=== PATIENT | male | born 1940 | race Caucasian/White ===

== ENCOUNTER 2017-10-23 16:20 | Observation (INO) | payer MEDICARE, BC ==
[2017-10-23 17:15] LABS: ABS Basophils 0.1 10^3/ul (0-0.2); ABS Eosinophils 0.1 10^3/ul (0-0.6); ABS Lymphocytes 1.3 10^3/ul (1.0-4.8); ABS Monocytes 0.7 10^3/ul (0-0.8); ABS Neutrophils 6.5 10^3/ul (1.5-7.7); ABS Nucleated RBC 0.1 10^3/ul; Hematocrit 46 % (42-52); Hemoglobin 15.7 g/dl (14.0-18.0); Lymphocyte % 15.2 % (25-47); Mean Corpuscular HGB Conc 34 g/dl (31-36); Mean Corpuscular Hemoglobin 29 pg (27-31); Mean Corpuscular Volume 86 fL (80-94); Mean Platelet Volume 8.4 um3 (7.4-10.4); Nucleated Red Blood Cells % 0.5; Platelet Count 156 10^3/ul (150-450); Red Blood Count 5.34 10^6/ul (4.00-5.40); Red Cell Distribution Width 15 % (10.5-15); White Blood Count 8.7 10^3/ul (3.5-10.8)
--- NOTE | 2017-10-23 17:50 | RAD ---
INDICATION: Chest pain COMPARISON: December 25, 2014 TECHNIQUE: An AP portable view obtained at 2022 hours is submitted. FINDINGS: Bones/Soft Tissues: There are no acute bony findings. Cardiomediastinal: The cardiomediastinal silhouette is normal. Lungs: There are no infiltrates. Pleura: There are no pleural effusions. Other: None IMPRESSION: NO ACTIVE DISEASE
[2017-10-23] MEDS ORDERED: Aspirin 81 mg CHEW TAB* 81 MG TAB.CHEW PO ONE (17:51)
[2017-10-23] MEDS ORDERED: Nitroglycerin TAB 0.4 MG* 0.4 MG TAB SL PRN (17:51)
[2017-10-23] MEDS ORDERED: Nitroglycerin TAB 0.4 MG* 0.4 MG TAB ONE (17:56)
--- NOTE | 2017-10-23 18:01 | ED ---
HPI Chest Pain - HPI Summary HPI Summary: This is scribe Herman Avila documenting for attending Eliseo Ryder MD. This patient is a 77 year old M presenting to [facility] with a chief complaint of a burning L sided chest pain since this morning. The patient rates the pain 5/10 in severity and reports that it radiates to his L shoulder. Patient reports SOB , high blood pressure, and sporadic long episodes of coughing (lasting for 10 minutes at a time). Patient denies nausea, vomiting, fever, and chills. He had an ablation for his A Fib at [place] in [place] about a week ago. Patient has not taken any nitroglycerin. He has a PMHx of asthma. I, Dr. Ryder, personally performed the services described in this documentation as scribed in my presence, and it is both accurate and complete. - History of Current Complaint Chief Complaint: EDChestPainROMI Time Seen by Provider: 10/23/17 17:40 Hx Obtained From: Patient Onset/Duration: Started Hours Ago - This morning, Still Present Initial Severity: Moderate Current Severity: Moderate Pain Intensity: 5 Pain Scale Used: 0-10 Numeric Chest Pain Location: Left Anterior Chest Pain Radiates: Yes Chest Pain Radiates To:: Shoulder - L shoulder Character: Burning Aggravating Factor(s): Nothing Alleviating Factor(s): Nothing Associated Signs and Symptoms: Positive: Chest Pain - burning L sided CP, Shortness of Breath, Cough - Sporadic coughing lasting for about 10 minutes at a time, Other: - High blood pressure. Negative: Fever, Chills, Nausea, Vomiting - Allergy/Home Medications Allergies/Adverse Reactions: Allergies Allergy/AdvReac Type Severity Reaction Status Date / Time erythromycin base Allergy GI Upset Verified 10/23/17 17:52 Home Medications: Home Medications Albuterol inh POWDER (NF) [Proair Respiclick] 2 puff INH Q4HR PRN 10/23/17 [ History Confirmed 10/23/17] Amiodarone TAB* [Cordarone TAB*] 200 mg PO DAILY 10/23/17 [History Confirmed ] Apixaban* [Eliquis*] 5 mg PO BID 10/23/17 [History Confirmed 10/23/17] Fluticasone/Vilanterol MDI(NF) [Breo Ellipta MDI 200/25(NF)] 1 puff INH DAILY [History Confirmed 10/23/17] Olmesartan Medoxomil [Benicar] 40 mg PO DAILY 10/23/17 [History Confirmed ] Omeprazole CAP* [Prilosec CAP* 20 MG] 40 mg PO DAILY 10/23/17 [History Confirmed 10/23/17] Tamsulosin CAP* [Flomax CAP*] 0.4 mg PO DAILY 10/23/17 [History Confirmed ] Verapamil SR CAP* [Calan Sr CAP*] 180 mg PO DAILY 10/23/17 [History Confirmed ] hydrALAZINE TAB* [Apresoline TAB*] 50 mg PO QAM 10/23/17 [History Confirmed ] hydrALAZINE TAB* [Apresoline TAB*] 100 mg PO BEDTIME 10/23/17 [History Confirmed 10/23/17] PMH/Surg Hx/FS Hx/Imm Hx Endocrine/Hematology History: Denies: Hx Diabetes, Hx Sickle Cell Disease Cardiovascular History: Reports: Hx Hypertension Denies: Hx Congestive Heart Failure Respiratory History: Reports: Hx Asthma Denies: Other Respiratory Problems/Disorders GI History: Reports: Other GI Disorders - DIVERTICULITIS History: Denies: Hx Renal Disease, Other Problems/Disorders Musculoskeletal History: Denies: Other Musculoskeletal History Sensory History: Reports: Hx Contacts or Glasses - READING Denies: Hx Hearing Aid Opthamlomology History: Reports: Hx Contacts or Glasses - READING Neurological History: Denies: Other Neuro Impairments/Disorders - Surgical History Surgery Procedure, Year, and Place: APPENDECTOMY AND CHOLECYSTECTOMY, prostate "scraped" Hx Anesthesia Reactions: No - Immunization History Immunizations Up to Date: Yes Infectious Disease History: No Infectious Disease History: Denies: Traveled Outside the [place] in Last 30 Days - Family History Known Family History: Positive: Hypertension - Social History Occupation: Retired Lives: With Family Alcohol Use: None Substance Use Type: Reports: None Smoking Status (MU): Never Smoked Tobacco Review of Systems Negative: Fever, Chills Positive: Chest Pain - burning L-sided CP since this morning, with pain radiating to L shoulder, Other - High BP Positive: Shortness Of Breath, Cough - Sporadic long episodes of coughing ( lasting up to 10 minutes) Negative: Vomiting, Nausea All Other Systems Reviewed And Are Negative: Yes Physical Exam - Summary Physical Exam Summary: VITAL SIGNS: Reviewed. GENERAL: Patient is a well-developed and nourished MALE who is lying comfortable in the stretcher. Patient is not in any acute respiratory distress. HEAD AND FACE: No signs of trauma. No ecchymosis, hematomas or skull depressions. No sinus tenderness. EYES: PERRLA, EOMI x 2, No injected conjunctiva, no nystagmus. EARS: Hearing grossly intact. Ear canals and tympanic membranes are within normal limits. MOUTH: Oropharynx within normal limits. NECK: Supple, trachea is midline, no adenopathy, no JVD, no carotid bruit, no c- spine tenderness, neck with full ROM. CHEST: Symmetric, no tenderness at palpation LUNGS: Clear to auscultation bilaterally. No wheezing or crackles. CVS: Regular rate and rhythm, S1 and S2 present, no murmurs or gallops appreciated. ABDOMEN: Soft, non-tender. No signs of distention. No rebound no guarding, and no masses palpated. Bowel sounds are normal. EXTREMITIES: FROM in all major joints, no edema, no cyanosis or clubbing. NEURO: Alert and oriented x 3. No acute neurological deficits. Speech is normal and follows commands. SKIN: Dry and warm Triage Information Reviewed: Yes Vital Signs On Initial Exam: Initial Vitals Temp Pulse Resp BP Pulse Ox 98.3 F 80 20 201/86 96 10/23/17 16:22 10/23/17 16:22 10/23/17 16:22 10/23/17 16:22 10/23/17 16:22 Vital Signs Reviewed: Yes Diagnostics - Vital Signs Vital Signs Temp Pulse Resp BP Pulse Ox 10/23/17 16:22 98.3 F 80 20 201/86 96 - Laboratory Lab Results: Lab Results 10/23/17 10/23/17 10/23/17 Range/Units 17:05 17:05 17:05 WBC 8.7 (3.5-10.8) 10^3/ul RBC 5.34 (4.00-5.40) 10^6/ul Hgb 15.7 (14.0-18.0) g/dl Hct 46 (42-52) % MCV 86 (80-94) fL MCH 29 (27-31) pg MCHC 34 (31-36) g/dl RDW 15 (10.5-15) % Plt Count 156 (150-450) 10^3/ul MPV 8.4 (7.4-10.4) um3 Neut % (Auto) 74.4 (38-83) % Lymph % (Auto) 15.2 L (25-47) % [place] % (Auto) 8.2 H (0-7) % Eos % (Auto) 1.0 (0-6) % Baso % (Auto) 1.2 (0-2) % Absolute Neuts (auto) 6.5 (1.5-7.7) 10^3/ul Absolute Lymphs (auto) 1.3 (1.0-4.8) 10^3/ul Absolute Monos (auto) 0.7 (0-0.8) 10^3/ul Absolute Eos (auto) 0.1 (0-0.6) 10^3/ul Absolute Basos (auto) 0.1 (0-0.2) 10^3/ul Absolute Nucleated RBC 0.1 10^3/ul Nucleated RBC % 0.5 Sodium 138 (135-145) mmol/L Potassium 4.0 (3.5-5.0) mmol/L Chloride 104 (101-111) mmol/L Carbon Dioxide Pending Anion Gap Pending BUN Pending Creatinine Pending Est GFR ( Amer) Pending Est GFR (Non-Af Amer) Pending BUN/Creatinine Ratio Pending Glucose Pending Calcium Pending Magnesium Pending Total Bilirubin Pending AST Pending ALT Pending Alkaline Phosphatase Pending Total Creatine Kinase Pending CK-MB (CK-2) 1.6 (0.6-6.3) ng/mL Troponin I 0.04 H* (<0.04) ng/mL B-Natriuretic Peptide 24 ( - 100) pg/mL Total Protein Pending Albumin Pending Globulin Pending Albumin/Globulin Ratio Pending TSH 3.07 (0.34-5.60) mcIU/mL Result Diagrams: 10/23/17 17:05 10/23/17 17:05 Lab Statement: Any lab studies that have been ordered have been reviewed, and results considered in the medical decision making process. - Radiology Chest X-Ray Radiology Interpretation Completed By: Radiologist - 17:46. No active disease. ED Physician has reviewed this report. - EKG No standard instances Cardiac Rate: NL - 72 BPM EKG Rhythm: Sinus Rhythm EKG Interpretation: Read 16:30. No ST elevation. Has depressions V4-V6. Chest Pain Course/Dx - Course Assessment/Plan: This patient is a 77-year-old male with a past medical history significant for atrial fibrillation on xarelto, hypertension, and asthma. He presents to the emergency department with a chief complaint of having chest pain. He reports that the chest pain is a burning and pressure-like pain in relation to the left shoulder. He reports that a week ago he had an ablation for atrial fibrillation. EKG shows a sinus rhythm at 72 bpm. Chest x-ray impression: no acute pathology. Blood work without any significant abnormality except for troponin of 0.04. The patient was given aspirin, Lopressor and nitroglycerin. At this point because of the patients symptoms I discussed the case with Dr. Fishman from the hospitalist services who accepted the patient for admission. The patient is hemodynamically stable alert and oriented 3. - Chest Pain Differential Diagnosis/HQI/PQRI: Acute [place], ACS, Angina, CHF, Chest Wall, GI Disease, Lower Respiratory Infection - Diagnoses Provider Diagnoses: Chest pain, Elevated troponin - Provider Notifications Discussed Care Of Patient With: Kelsey Fishman - Hospitalist Time Discussed With Above Provider: 17:54 Instructed by Provider To: Admit As Inpatient Discharge - Sign-Out/Discharge Documenting (check all that apply): Patient Departure - Admit to Kelsey Fishman MD - Discharge Plan Condition: Stable Disposition: ADMITTED TO [facility]
[2017-10-23] MEDS ORDERED: Al Hydrox/Mg Hydrox/Simet LIQ* 30 ML UDC PO PRN (18:36)
[2017-10-23] MEDS ORDERED: Morphine INJ* 2 MG/ML 1 ML SYRINGE (TWO MG - NEW SYRINGE VERSION) IV PRN (18:36)
[2017-10-23] MEDS ORDERED: Acetaminophen TAB* 325 MG PO PRN (18:36)
[2017-10-23] MEDS ORDERED: Albuterol HFA INHALER* 8 gm MDI INH PRN (18:40)
[2017-10-23] MEDS ORDERED: hydrALAZINE IV* 20 MG/ML VIAL IV SLOW PU PRN (18:42)
[2017-10-23 18:51] LABS: EGFR Non-African American 62.6 (>60)
[2017-10-23] MEDS ORDERED: hydrALAZINE TAB* 100 MG ** ONE HUNDRED PO SCH (21:00)
[2017-10-23] MEDS: Apixaban* 5 MG TAB PO SCH (21:02)
--- NOTE | 2017-10-23 21:26 | HP ---
CC: Dr. Wilkinson; Dr. Stone; Dr. Cindy Chatterjee, [facility]* HISTORY AND PHYSICAL: DATE OF ADMISSION: 10/23/17 PRIMARY CARE PROVIDER: Dr. Wilkinson. FOREIGN LAW CONSULTANT: Dr. Stone. CHIEF COMPLAINT: Chest pain. HISTORY OF PRESENT ILLNESS: Justo Peterson is a 77-year-old male with history of atrial flutter for which he had undergone an ablation procedure by Dr. Fatimah Garcia at [facility] on 10/16/17. The patient stated that immediately after ablation, he felt left shoulder pain radiating to the left neck. He stated that the pain is sometimes like burning, but is also tender to palpation in the left scapular area when he lies down. Today, in addition to that, he started developing substernal chest burning sensation. He checked his blood pressure and it was elevated. He checked it again and it was higher. He eventually came to the hospital with blood pressure 201/86. He continued to be in sinus rhythm. His troponin was 0.04, which is not surprising after the ablation. He is going to be placed on overnight observation with a diagnosis of chest pain. PAST SURGICAL HISTORY: 1. History of atrial flutter, status post ablation as mentioned above on at [facility] in [place]. 2. History of uncontrolled hypertension in the past. 3. History of asthma. 4. Gastroesophageal reflux disease. 5. History of BPH, status post TURP in the past. 6. History of left hip replacement in August of 2016. CURRENT MEDICATIONS: Include: 1. Hydralazine 50 mg in the morning, 100 at night. 2. Omeprazole 40 mg daily. 3. Flomax 0.4 mg daily. 4. Verapamil SR 180 mg daily. 5. Olmesartan 40 mg daily. 6. Eliquis 5 mg b.i.d. 7. Amiodarone 200 mg daily. 8. Breo Ellipta 1 inhalation daily. ALLERGIES: ERYTHROMYCIN. FAMILY HISTORY: Positive for history of atrial fibrillation in the family. SOCIAL HISTORY: The patient has been for 55 years. 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 He denies any tobacco, alcohol, or drug use. His surrogate is his . REVIEW OF SYSTEMS: Please see history of present illness. The patient stated that initially when he was diagnosed with atrial fibrillation early on this year , he was noted to have generalized weakness and fatigue as well as shortness of breath with exertion. He stated that when he came over to the ablation procedure, he was in sinus rhythm. He stated that he was told that the procedure was successful. He denies any current chest pain. His weight has been stable. He denies any abdominal pain or fevers. All the remaining 14 systems were reviewed with the patient and were otherwise negative. Of note, the patient had nuclear cardiac stress test obtained at [facility] under the direction of Dr. Stone that was reported to be normal cardiac chemical nuclear stress test with no evidence of ischemia and that was noted to be on 10/09/17. PHYSICAL EXAMINATION GENERAL: The patient is a very pleasant 77-year-old male, who is in no acute distress. Alert, awake, and oriented x3. VITAL SIGNS: Blood pressure of /87, heart rate of 62 and regular, respiratory rate 17, oxygen saturation 93% on room air, temperature of 98.3. HEENT: Head: Atraumatic, normocephalic. Eyes: Pupils are equal, reactive to light and accommodation. Oropharynx is clear. Mucosa moist. NECK: Supple. No JVD. No bruits bilaterally. RESPIRATORY: Clear to auscultation bilaterally. CARDIOVASCULAR: Regular rate and rhythm. No murmur. ABDOMEN: Soft, nontender. Bowel sounds are present in all 4 quadrants. BACK: On evaluation of the back, on palpation of the back, the patient has point tenderness over the left scapular region. EXTREMITIES: There is no edema. Pulses are +2 bilaterally. No clubbing or cyanosis. NEUROLOGIC: Speech is clear. Cranial nerves II through XII are grossly intact. Motor strength is 5/5 bilaterally. PSYCHIATRIC: Oriented x2 with no evidence of anxiety or depression. SKIN: On evaluation of the skin, no ecchymotic areas or rashes noted. DIAGNOSTIC STUDIES/LAB DATA: Part of it is still pending, but what we have is sodium of 138, potassium 4.0, chloride 104. Troponin of 0.04. TSH of 3.07. CBC with white blood cell count of 8.7, hemoglobin of 15.7, hematocrit of 46, and platelets of . Portable chest x-ray, impression: "No active disease." The patient's EKG showed normal sinus rhythm with a heart rate of 72 beats per minute, prolonged QT interval with QTc of 477 milliseconds, no ST changes. ASSESSMENT AND PLAN: 1. In regards to the patient experiencing chest pain after ablation, I curb- sided the cover cutter machine on-call. At this point, we are going to obtain CT angiogram to rule out pulmonary embolism. The patient is going to be placed on overnight observation with followup troponins. His EKG is going to be repeated in the morning and we will obtain a transthoracic echocardiogram. So far, a troponin of 0.04, I do not believe it is that abnormal in a patient a week after ablation. 2. In regards to the patient's hypertension, we will continue with his outpatient medications with addition of hydralazine IV p.r.n. on as needed basis. 3. For his DVT prophylaxis, the patient is at moderate risk and Eliquis is going to be continued. 4. For his history of atrial flutter, the patient is currently in normal sinus rhythm. His antiarrhythmics are going to be continued as previously ordered by his database management specialist and those have been unchanged from prior to the ablation. 5. The patient's code status is full. His surrogate is his . TIME SPENT: Approximately 75 minutes was spent on admission of this patient, more than half of that time was spent [id number] with the patient during the interview and physical exam. [id number]/CPS #: [id number] KHUSHI
[2017-10-23] MEDS ORDERED: Iohexol 350* (CONTRAST) 500 ML MDV IV SCH (21:50)
--- NOTE | 2017-10-23 22:52 | RAD ---
EXAM: CT Angiography Chest With Intravenous Contrast EXAM DATE/TIME: 10/23/17 (10:00pm) CLINICAL HISTORY: 77 year old male. Atrial fibrillation. Possible pulmonary embolism. TECHNIQUE: Axial computed tomographic angiography images of the chest with intravenous contrast using pulmonary embolism protocol. All CT scans at this facility use at least one of these dose optimization techniques: automated exposure control; mA and/or kV adjustment per patient size (includes targeted exams where dose is matched to clinical indication); or iterative reconstruction. 3D and MIP reconstructed images were created and reviewed. Coronal and sagittal reformatted images were created and reviewed. CONTRAST: 83 mL of Omnipaque 350 administered intravenously COMPARISON: Frontal CXR of 12/25/14 FINDINGS: Pulmonary arteries: Unremarkable. No pulmonary embolism. Aorta: No acute findings. No thoracic aortic aneurysm. Lungs: No mass nor consolidation. Minimal streaky atelectatic changes at each lung base. Pleural space: Unremarkable. No significant pleural effusions. No pneumothorax. Heart: Unremarkable. No cardiomegaly. No significant pericardial effusion. No evidence of RV dysfunction. Bones/joints: No acute fracture nor dislocation. Soft tissues: Unremarkable. Lymph nodes: Unremarkable. No enlarged lymph nodes. Upper abdomen: Diffuse fatty infiltration of the liver. Previous cholecystectomy. Probable small cyst at the left upper renal pole (partially imaged). IMPRESSION: No acute chest pathology. No filling defects suspicious for pulmonary emboli are seen. There is no CT evidence of aortic dissection nor leakage. No aortic aneurysm is appreciated. Previous cholecystectomy. Final reading addendum: There are calcified granulomas of the lung and spleen as well as calcified hilar lymph nodes consistent with exposure to granulomatous disease. R2
[2017-10-24 06:45] LABS: ABS Basophils 0.1 10^3/ul (0-0.2); ABS Eosinophils 0.2 10^3/ul (0-0.6); ABS Lymphocytes 1.7 10^3/ul (1.0-4.8); ABS Monocytes 0.7 10^3/ul (0-0.8); ABS Neutrophils 5.6 10^3/ul (1.5-7.7); ABS Nucleated RBC 0 10^3/ul; Hematocrit 44 % (42-52); Hemoglobin 15.4 g/dl (14.0-18.0); Lymphocyte % 20.4 % (25-47); Mean Corpuscular HGB Conc 35 g/dl (31-36); Mean Corpuscular Hemoglobin 30 pg (27-31); Mean Corpuscular Volume 85 fL (80-94); Mean Platelet Volume 8.4 um3 (7.4-10.4); Nucleated Red Blood Cells % 0.2; Platelet Count 145 10^3/ul (150-450); Red Cell Distribution Width 15 % (10.5-15); White Blood Count 8.3 10^3/ul (3.5-10.8)
[2017-10-24] MEDS ORDERED: Omeprazole CAP* 20 MG PO SCH (07:30)
[2017-10-24] MEDS ORDERED: hydrALAZINE TAB* 25 MG PO SCH (09:00)
[2017-10-24] MEDS ORDERED: Amiodarone TAB* 200 MG PO SCH (09:00)
[2017-10-24] MEDS ORDERED: Tamsulosin CAP* 0.4 MG PO SCH (09:00)
[2017-10-24] MEDS ORDERED: Verapamil SR CAP* 180 MG PO SCH (09:00)
[2017-10-24] MEDS: Apixaban* 5 MG TAB PO SCH (10:14)
[2017-10-24 11:56] VITALS: BP 162/67
--- NOTE | 2017-10-24 12:21 | ECHO ---
Patient: VANCE PORTILLO Rec#: [id number] : 1940 Date: 10/24/2017 Age: 77y Height: 168 cm / 66.1 in Weight: 103 kg / 227.0 lbs Sex: M BSA: 2.11 [facility] Admit Date#: 10/23/2017 Type: Inpatient Referring: Kelsey Fishman MD Reading: Rinku Arredondo MD Hr Specialist: Alma Gutierrez,JAMICS,RDMS CC: Ron Wilkinson MD Transthoracic Echocardiogram Indication: CP BP: 136/63 HR: 60 Rhythm: NSR Findings History: S/P/ablation, AFLUTTER, HTN Technical Comments: The study quality is good. Left Ventricle: The left ventricular chamber size is normal. There is a prominent septal knuckle. Global left ventricular wall motion and contractility are within normal limits. There is normal left ventricular systolic function. The estimated ejection fraction is 55-60%. There is an E to A reversal in the mitral valve flow pattern suggestive of diastolic dysfunction. Left Atrium: The left atrium is mildly dilated. Right Ventricle: The right ventricle is mildly dilated. The right ventricular global systolic function is normal. Right Atrium: The right atrium is mildly dilated. Aortic Valve: The aortic valve is trileaflet. The aortic valve leaflets are mildly thickened. There is aortic annular calcification. There is trace to mild aortic regurgitation. There is no evidence of aortic stenosis. Mitral Valve: The mitral valve leaflets appear normal. Mild mitral annular calcification present. There is mild mitral regurgitation. There is no evidence of mitral stenosis. Tricuspid Valve: The tricuspid valve leaflets are normal. There is trace tricuspid regurgitation. Unable to estimate the right ventricular systolic pressure. Pulmonic Valve: The pulmonic valve appears normal. There is a trace pulmonic regurgitation. Pericardium: There is no significant pericardial effusion. Aorta: There is mild dilatation of the ascending aorta. The aortic arch is not well visualized. There is no dilation of the aortic root. Pulmonary Artery: The main pulmonary artery appears normal. Venous: The inferior vena cava is not visualized. Summary: There was not any prior study for comparison. Conclusions Global left ventricular wall motion and contractility are within normal limits. There is normal left ventricular systolic function. The estimated ejection fraction is 55-60%. The right ventricular global systolic function is normal. There is trace to mild aortic regurgitation. There is mild mitral regurgitation. There is trace tricuspid regurgitation. Unable to estimate the right ventricular systolic pressure. There is no significant pericardial effusion. Measurements Name Value Normal Range RVIDd (AP) 2D 3.1 cm (0.9 - 2.6) RVDdMajor (2D) 4.7 cm (2.2 - 4.4) RAd ISD 4CH 5.6 cm (3.4 - 4.9) RA (A4C)W 5.2 cm (2.9 - 4.6) IVSd (2D) 1.3 cm (0.6 - 1) LVPWd (2D) 0.9 cm (0.6 - 1) LVIDd (2D) 4.3 cm (3.6 - 5.4) LVIDs (2D) 3.2 cm - LV FS (2D) 52 % (25 - 45) Aortic Annulus 2 cm (1.4 - 2.6) Ao root diameter (2D) 3.4 cm (2.1 - 3.5) Ascending Ao 3.6 cm (2.1 - 3.4) LA dimension (AP) 2D 4.5 cm (2.3 - 3.8) LAd ISD 4CH 5.8 cm (2.9 - 5.3) LA ISD 4CH W 4.7 cm (2.5 - 4.5) Name Value Normal Range LA ESV BP (A/L) index 36 ml/m2 - Name Value Normal Range MV E-wave Vmax 0.6 m/sec - MV deceleration time 174 msec - MV A-wave Vmax 0.9 m/sec - MV E:A ratio 0.7 ratio - P. vein S-wave Vmax 0.6 m/sec - P. vein D-wave Vmax 0.3 m/sec - P. vein S:D Vmax ratio 2.1 ratio - P. vein A-wave duration 111 msec - LV septal e' Vmax 0.07 m/sec - LV lateral e' Vmax 0.09 m/sec - LV E:e' septal ratio 8 ratio - LV E:e' lateral ratio 7 ratio - Name Value Normal Range AV Vmax 1.3 m/sec - AV VTI 29 cm - AV peak gradient 7 mmHg - AV mean gradient 3 mmHg - LVOT Vmax 1 m/sec - LVOT VTI 21 cm - LVOT peak gradient 4 mmHg - LVOT mean gradient 2 mmHg - AR PHT 471 msec - Name Value Normal Range RAP 8 mmHg - Name Value Normal Range PV Vmax 0.6 m/sec - PV peak gradient 1.4 mmHg -
[2017-10-24] MEDS ORDERED: hydrALAZINE TAB* 25 MG PO ONE (14:21)
--- NOTE | 2017-10-24 22:40 | DS ---
CC: Dr. Wilkinson; Dr. Stone; Dr. Cindy Chatterjee, [facility]; Dr. Arredondo* DISCHARGE SUMMARY: DATE OF ADMISSION: 10/23/17 DATE OF DISCHARGE: 10/24/17 PRIMARY CARE PROVIDER: Dr. Wilkinson. DISCHARGE DIAGNOSES: 1. Chest pain. 2. Hypertension. SECONDARY DIAGNOSES: 1. History of atrial flutter, status post ablation on 10/16/17 at [facility] in [place]. 2. History of hypertension. 3. Asthma. 4. Gastroesophageal reflux disease. 5. History of benign prostatic hypertrophy, status post TURP. 6. 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 MEDICATIONS AT DISCHARGE: Include hydralazine dose was increased from 50 mg in the morning and 100 at night to 50 mg in the morning, 50 mg midday and 100 mg at night. The remaining medications are unchanged and include: 1. Omeprazole 40 mg daily. 2. Flomax 0.4 mg daily. 3. Verapamil SR 180 mg daily. 4. Olmesartan 40 mg daily. 5. Eliquis 5 mg b.i.d. 6. Amiodarone 200 mg daily. 7. Breo Ellipta 1 inhalation daily. LABORATORY DATA AND STUDIES PERFORMED DURING THE HOSPITAL STAY: Included on , white blood cell count of 8.3, hemoglobin of 15.4, hematocrit of 44, and platelets of 145. Sodium was 138, potassium of 4.1, chloride 105, carbon dioxide 26, BUN 20, creatinine was 1.01. His troponin continued to be "flat" at 0.04. TSH was 3.[address] angiogram of the chest obtained on 10/23/17 showed "no acute chest pathology. No filling defect suspicious for pulmonary emboli. No CT evidence of aortic dissection or leakage. No aortic aneurysm appreciated. Previous cholecystectomy. There are calcified granulomas of the lung and spleen as well as calcified hilar lymph nodes consistent with exposure to granulomatous disease." Transthoracic echocardiogram obtained on 10/24/17 showed EF of 55% to 60% with global left ventricular wall motion and contractility within normal limits. There was trace to mild aortic regurgitation and mild mitral regurgitation. HOSPITALIZATION COURSE: Justo Peterson is a 77-year-old male with history of recent ablation of atrial flutter performed at [facility] on 10/16/17, who presented to the hospital complaining of substernal chest burning sensation as well as left scapular pain. The patient stated that the left scapular pain had been ongoing ever since his ablation procedure, but the substernal chest burning was new at admission. Throughout the hospital stay, he continued to have indeterminate troponin of 0.04, which was flat. He was placed on telemetry monitored bed and was shown to have frequent PVCs, but no evidence of other arrhythmias. He was asymptomatic throughout his hospital stay apart from his left scapular region was burner tender to palpation. His substernal chest burning was still present at discharge, but improved. The patient's CT angiogram of the chest was negative for PE or other marked abnormalities. His echocardiogram as above did not show any abnormalities either. The patient was noted to be hypertensive throughout his hospital stay with systolic blood pressures in the 150s and 170s and at this point the patient 's hydralazine is going to be with an added mid day dose at 50 mg. The remaining medications are unchanged. At discharge, the patient is recommended to follow up with his primary care provider, Dr. Wilkinson in 4 to 7 days and his market news reporter from [facility] as scheduled in a week and half. PHYSICAL EXAMINATION: Physical exam at discharge is unchanged from admission. [id number]/[facility] #: [id number] KHUSHI
[2017-10-25] MEDS ORDERED: FLUTICASONE INH SCH (09:00)
[2017-10-25] MEDS ORDERED: MDI INH SCH (09:00)
[2017-10-25] MEDS ORDERED: VILANTEROL MDI INH SCH (09:00)
== END 2017-10-24 16:15 | disposition home or self-care (01) ==
LOC: ED 16:20 → MEDTELE 18:35
PROVIDERS: ADMIT Internal Medicine; ATTEND Internal Medicine
DX: R07.89 Other chest pain (principal); Z86.79 Personal history of other diseases of the circulatory system; I10 Essential (primary) hypertension; J45.909 Unspecified asthma, uncomplicated; K21.9 Gastro-esophageal reflux disease without esophagitis; Z87.438 Personal history of other diseases of male genital organs; Z90.79 Acquired absence of other genital organ(s); Z96.642 Presence of left artificial hip joint; R06.02 Shortness of breath
CPT/HCPCS: 36415; 71045; 71275; 80048; 80053; 82550; 82553; 83605; 83735; 83880; 84443; 84484; 85025; 93005; 93306; 96374; 96375; 99284; A9270-GY; G0378; Q9967